=== PATIENT | female | born 1995 | race Caucasian/White ===

== ENCOUNTER 2018-06-15 18:11 | Inpatient (IN) | payer OTHER ==
[2018-06-15] MEDS: ACETAMINOPHEN 325 MG TAB PO (18:45)
[2018-06-15 18:47] LABS: ADD MAN DIFF? NO
[2018-06-15 18:48] LABS: BASOPHILS % 0.2 % (0.0-2.0); EOSINOPHILS # 0.1 10^3/ul (0.0-0.5); EOSINOPHILS % 0.7 % (0.0-7.0); HEMATOCRIT 35.3 % (37.0-47.0); HEMOGLOBIN 11.9 g/dl (12.0-16.0); MEAN CORPUSCULAR HEMOGLOBIN 30.7 pg (29.0-33.0); MEAN CORPUSCULAR HGB CONC 33.7 g/dl (32.0-37.0); MEAN PLATELET VOLUME 10.9 fl (7.4-10.4); MONOCYTE # 0.5 10^3/ul (0.3-0.9); MONOCYTES % 4.4 % (0.0-11.0); NEUTROPHIL # 7.5 10^3/ul (1.6-7.5); NEUTROPHILS % 67.3 % (39.0-77.0); PLATELET COUNT 234 10^3/UL (140-415); RED BLOOD COUNT 3.88 10^6/ul (4.20-5.40); RED CELL DISTRIBUTION WIDTH 12.5 % (11.5-14.5)
[2018-06-15 18:48] LABS: WHITE BLOOD COUNT 11.1 10^3/ul (4.8-10.8)
[2018-06-15 18:54] LABS: ADD UMIC YES; UR ASCORBIC ACID NEGATIVE (NEGATIVE); UR BACTERIA FEW /HPF (NONE SEEN); UR BILIRUBIN (Dip) NEGATIVE (NEGATIVE); UR BLOOD (Dip) NEGATIVE (NEGATIVE); UR CLARITY SLIGHTLY CLOUDY (CLEAR); UR COLOR YELLOW (YELLOW); UR GLUCOSE (Dip) NEGATIVE (NEGATIVE); UR KETONES (Dip) NEGATIVE (NEGATIVE); UR LEUKOCYTE ESTERASE (Dip) 1+ Leu/ul (NEGATIVE); UR MUCUS FEW /HPF (NONE SEEN); UR NITRITE (Dip) NEGATIVE (NEGATIVE); UR RBC 2 /HPF (0-5); UR SPECIFIC GRAVITY (Dip) 1.018 (1.003-1.030); UR SQUAMOUS EPITHELIAL CELL FEW /HPF (FEW); UR TOTAL PROTEIN (Dip) 2+ mg/dl (NEGATIVE); UR UROBILINOGEN (Dip) NEGATIVE (NEGATIVE); UR WBC 4 /HPF (0-5)
[2018-06-15 19:06] LABS: ALANINE AMINOTRANSFERASE 21 IU/L (13-69); ALBUMIN 3.3 g/dl (3.3-4.9); ALBUMIN/GLOBULIN RATIO 1.06; ALKALINE PHOSPHATASE 118 IU/L (42-121); ANION GAP 7 (5-13); ASPARTATE AMINO TRANSFERASE 19 IU/L (15-46); BILIRUBIN,INDIRECT 0.3 mg/dl (0-1.1); BILIRUBIN,TOTAL 0.3 mg/dl (0.2-1.3); BLOOD UREA NITROGEN 8 mg/dl (7-20); CALCIUM 9.1 mg/dl (8.4-10.2); CARBON DIOXIDE 20 mmol/L (21-31); CHLORIDE 107 mmol/L (97-110); CREATININE 0.44 mg/dl (0.44-1.00); Estimated GFR > 60 mL/min (>60); GLUCOSE 111 mg/dl (70-220); POTASSIUM 3.4 mmol/L (3.5-5.1); SODIUM 134 mmol/L (135-144); TOTAL PROTEIN 6.4 g/dl (6.1-8.1); URIC ACID 6.1 mg/dl (3.1-7.9)
[2018-06-15 19:08] LABS: INR 0.84; PROTIME 11.6 Sec (11.9-14.9); PT RATIO 0.9
[2018-06-15] MEDS ORDERED: AL HYDROX/MG HYDROX/SIMETH 30 ML CUP PO (20:30)
[2018-06-15] MEDS: LABETALOL 200 MG TAB PO (21:42)
[2018-06-16] MEDS: BETAMET NA PHOS/AC(6 MG/ML) 2 ML INJ SYG IM (00:32)
[2018-06-16] MEDS: FERROUS SULFATE (EC) 325 MG TAB PO (09:01)
[2018-06-16] MEDS: ASPIRIN 81 MG TAB PO (09:01)
[2018-06-16] MEDS: PRENATAL VITAMIN PO (09:01)
[2018-06-16] MEDS: LABETALOL 200 MG TAB PO ×2 (09:02→20:53)
[2018-06-16] MEDS: ACETAMINOPHEN 325 MG TAB PO ×2 (15:29→23:44)
[2018-06-16 18:39] LABS: COLLECTION PERIOD 24 hrs
[2018-06-16 19:05] LABS: CREATININE 0.44 mg/dl (0.44-1.00)
[2018-06-16 19:13] LABS: CREATININE,URINE RANDOM 143.36 mg/dl (20-320)
[2018-06-16 19:15] LABS: COLLECTION PERIOD 24 hrs; CREATININE CLEARANCE 203.6 mls/min (84.0-162.0); SCRET 0.44 mg/dl (0.44-1.00); VOLUME 900 ml/24hrs; VOLUME 900 mls
[2018-06-16 22:52] LABS: HEPATITIS B SURFACE ANTIGEN NEGATIVE (NEGATIVE)
[2018-06-17] MEDS: BETAMET NA PHOS/AC(6 MG/ML) 2 ML INJ SYG IM (00:45)
[2018-06-17] MEDS: FERROUS SULFATE (EC) 325 MG TAB PO (08:39)
[2018-06-17] MEDS: ASPIRIN 81 MG TAB PO (08:39)
[2018-06-17] MEDS: PRENATAL VITAMIN PO (08:39)
[2018-06-17] MEDS: LABETALOL 200 MG TAB PO (08:39)
[2018-06-17 15:32] LABS: RAPID PLASMA REAGIN NONREACTIVE (NR)
[2018-06-18 14:41] LABS: ANA SCREEN NEGATIVE (NEGATIVE)
[2018-06-19 13:07] LABS: SMOOTH MUSCLE AB SCREEN NEGATIVE (NEGATIVE)
[2018-06-20 01:52] LABS: B2 GLYCOPROTEIN I AB (IGA) <9 SAU (< OR = 20); B2 GLYCOPROTEIN I AB (IGG) <9 SGU (< OR = 20); B2 GLYCOPROTEIN I AB (IGM) <9 SMU (< OR = 20)
[2018-06-20 11:02] LABS: CARDIOLIPIN AB - IGA <11 APL; CARDIOLIPIN AB - IGG <14 GPL; CARDIOLIPIN AB - IGM <12 MPL
== END 2018-06-17 13:05 | disposition home or self-care (01) | DRG 833 ==
LOC: OBT 18:11 → L-D 06-16 04:32 → OBT 20:09 → L-D 20:09
DX: O13.3 Gestational [pregnancy-induced] hypertension without significant proteinuria, third trimester (principal); Z3A.30 30 weeks gestation of pregnancy
CPT/HCPCS: 36415; 80053; 81001; 82565; 82575; 84156; 84560; 85025; 85610; 85613; 85730; 86038; 86146; 86147; 86255; 86592; 87340

== ENCOUNTER 2018-06-25 11:48 | Inpatient (IN) | payer OTHER ==
[2018-06-25 12:40] LABS: ADD MAN DIFF? NO
[2018-06-25 12:45] LABS: BASOPHILS % 0.2 % (0.0-2.0); EOSINOPHILS # 0.1 10^3/ul (0.0-0.5); EOSINOPHILS % 0.7 % (0.0-7.0); HEMATOCRIT 39.1 % (37.0-47.0); HEMOGLOBIN 13.2 g/dl (12.0-16.0); LYMPHOCYTES # 2.7 10^3/ul (0.8-2.9); LYMPHOCYTES % 20.2 % (15.0-51.0); MEAN CORPUSCULAR HEMOGLOBIN 30.8 pg (29.0-33.0); MEAN CORPUSCULAR HGB CONC 33.8 g/dl (32.0-37.0); MEAN CORPUSCULAR VOLUME 91.4 fl (82.0-101.0); MEAN PLATELET VOLUME 10.9 fl (7.4-10.4); MONOCYTE # 0.7 10^3/ul (0.3-0.9); MONOCYTES % 5.3 % (0.0-11.0); NEUTROPHIL # 9.5 10^3/ul (1.6-7.5); NEUTROPHILS % 72.8 % (39.0-77.0); PLATELET COUNT 218 10^3/UL (140-415); RED BLOOD COUNT 4.28 10^6/ul (4.20-5.40); RED CELL DISTRIBUTION WIDTH 13.1 % (11.5-14.5)
[2018-06-25 12:45] LABS: WHITE BLOOD COUNT 13.1 10^3/ul (4.8-10.8)
[2018-06-25 12:54] LABS: ADD UMIC YES; UR ASCORBIC ACID NEGATIVE (NEGATIVE); UR BACTERIA FEW /HPF (NONE SEEN); UR BILIRUBIN (Dip) NEGATIVE (NEGATIVE); UR BLOOD (Dip) NEGATIVE (NEGATIVE); UR CLARITY SLIGHTLY CLOUDY (CLEAR); UR COLOR YELLOW (YELLOW); UR GLUCOSE (Dip) NEGATIVE (NEGATIVE); UR KETONES (Dip) NEGATIVE (NEGATIVE); UR LEUKOCYTE ESTERASE (Dip) 1+ Leu/ul (NEGATIVE); UR MUCUS FEW /HPF (NONE SEEN); UR NITRITE (Dip) NEGATIVE (NEGATIVE); UR RBC 1 /HPF (0-5); UR SPECIFIC GRAVITY (Dip) 1.018 (1.003-1.030); UR SQUAMOUS EPITHELIAL CELL FEW /HPF (FEW); UR TOTAL PROTEIN (Dip) 1+ mg/dl (NEGATIVE); UR UROBILINOGEN (Dip) NEGATIVE (NEGATIVE); UR WBC 2 /HPF (0-5)
[2018-06-25 13:25] LABS: URIC ACID 6.9 mg/dl (3.1-7.9)
[2018-06-25 13:26] LABS: ALANINE AMINOTRANSFERASE 51 IU/L (13-69); ALBUMIN 3.5 g/dl (3.3-4.9); ALBUMIN/GLOBULIN RATIO 1.06; ALKALINE PHOSPHATASE 126 IU/L (42-121); ANION GAP 7 (5-13); ASPARTATE AMINO TRANSFERASE 73 IU/L (15-46); BILIRUBIN,INDIRECT 0.4 mg/dl (0-1.1); BILIRUBIN,TOTAL 0.4 mg/dl (0.2-1.3); BLOOD UREA NITROGEN 10 mg/dl (7-20); CALCIUM 9.7 mg/dl (8.4-10.2); CARBON DIOXIDE 22 mmol/L (21-31); CHLORIDE 107 mmol/L (97-110); CREATININE 0.41 mg/dl (0.44-1.00); Estimated GFR > 60 mL/min (>60); GLUCOSE 104 mg/dl (70-220); POTASSIUM 3.8 mmol/L (3.5-5.1); SODIUM 136 mmol/L (135-144); TOTAL PROTEIN 6.8 g/dl (6.1-8.1)
[2018-06-25 13:41] LABS: INR 0.81; PROTIME 11.2 Sec (11.9-14.9); PT RATIO 0.9
[2018-06-25 13:42] LABS: PARTIAL THROMBOPLASTIN TIME 27.3 Sec (23.0-35.0)
[2018-06-25] MEDS: ACETAMINOPHEN 325 MG TAB PO (16:13)
[2018-06-25] MEDS: LABETALOL 200 MG TAB PO (20:49)
[2018-06-26 06:05] LABS: ADD MAN DIFF? NO
[2018-06-26 06:12] LABS: BASOPHILS % 0.2 % (0.0-2.0); EOSINOPHILS # 0.1 10^3/ul (0.0-0.5); EOSINOPHILS % 0.9 % (0.0-7.0); HEMATOCRIT 36.5 % (37.0-47.0); HEMOGLOBIN 12.2 g/dl (12.0-16.0); LYMPHOCYTES # 2.7 10^3/ul (0.8-2.9); LYMPHOCYTES % 24.4 % (15.0-51.0); MEAN CORPUSCULAR HGB CONC 33.4 g/dl (32.0-37.0); MEAN CORPUSCULAR VOLUME 92.9 fl (82.0-101.0); MEAN PLATELET VOLUME 11.4 fl (7.4-10.4); MONOCYTE # 0.8 10^3/ul (0.3-0.9); MONOCYTES % 6.8 % (0.0-11.0); NEUTROPHIL # 7.4 10^3/ul (1.6-7.5); NEUTROPHILS % 67.2 % (39.0-77.0); PLATELET COUNT 189 10^3/UL (140-415); RED BLOOD COUNT 3.93 10^6/ul (4.20-5.40); RED CELL DISTRIBUTION WIDTH 13.2 % (11.5-14.5)
[2018-06-26 06:49] LABS: ALBUMIN/GLOBULIN RATIO 1.03; ANION GAP 5 (5-13); BILIRUBIN,TOTAL 0.3 mg/dl (0.2-1.3); Estimated GFR > 60 mL/min (>60)
[2018-06-26 06:52] LABS: ALANINE AMINOTRANSFERASE 39 IU/L (13-69); ALBUMIN 3.1 g/dl (3.3-4.9); ALKALINE PHOSPHATASE 117 IU/L (42-121); ASPARTATE AMINO TRANSFERASE 40 IU/L (15-46); BILIRUBIN,INDIRECT 0.3 mg/dl (0-1.1); BLOOD UREA NITROGEN 15 mg/dl (7-20); CALCIUM 9.1 mg/dl (8.4-10.2); CARBON DIOXIDE 23 mmol/L (21-31); CHLORIDE 107 mmol/L (97-110); CREATININE 0.43 mg/dl (0.44-1.00); GLUCOSE 88 mg/dl (70-220); POTASSIUM 4.4 mmol/L (3.5-5.1); SODIUM 135 mmol/L (135-144); TOTAL PROTEIN 6.1 g/dl (6.1-8.1)
[2018-06-26] MEDS: LABETALOL 200 MG TAB PO (10:15)
== END 2018-06-26 16:54 | disposition home or self-care (01) | DRG 833 ==
LOC: OBT 11:48 → L-D 11:48 → OBT 16:30 → L-D 16:30
DX: O13.3 Gestational [pregnancy-induced] hypertension without significant proteinuria, third trimester (principal); Z3A.31 31 weeks gestation of pregnancy
CPT/HCPCS: 76705; 76818; 80053; 81001; 84560; 85025; 85384; 85610; 85730

== ENCOUNTER 2018-06-30 11:04 | Inpatient (IN) | payer OTHER ==
[2018-06-30 12:54] LABS: ADD UMIC YES; UR ASCORBIC ACID NEGATIVE (NEGATIVE); UR BACTERIA FEW /HPF (NONE SEEN); UR BILIRUBIN (Dip) NEGATIVE (NEGATIVE); UR BLOOD (Dip) NEGATIVE (NEGATIVE); UR CLARITY CLOUDY (CLEAR); UR COLOR AMBER (YELLOW); UR GLUCOSE (Dip) NEGATIVE (NEGATIVE); UR KETONES (Dip) NEGATIVE (NEGATIVE); UR LEUKOCYTE ESTERASE (Dip) 2+ Leu/ul (NEGATIVE); UR MUCUS MODERATE /HPF (NONE SEEN); UR NITRITE (Dip) NEGATIVE (NEGATIVE); UR RBC 3 /HPF (0-5); UR SPECIFIC GRAVITY (Dip) 1.028 (1.003-1.030); UR SQUAMOUS EPITHELIAL CELL MODERATE /HPF (FEW); UR TOTAL PROTEIN (Dip) 2+ mg/dl (NEGATIVE); UR UROBILINOGEN (Dip) NEGATIVE (NEGATIVE); UR WBC 11 /HPF (0-5)
[2018-06-30] MEDS: ACETAMINOPHEN 325 MG TAB PO (13:37)
[2018-06-30] MEDS: ONDANSETRON 4 MG TAB PO ×2 (13:37→21:00)
[2018-06-30 14:11] LABS: ADD MAN DIFF? NO
[2018-06-30 14:13] LABS: BASOPHILS % 0.2 % (0.0-2.0); EOSINOPHILS % 0.1 % (0.0-7.0); HEMATOCRIT 39.9 % (37.0-47.0); HEMOGLOBIN 13.4 g/dl (12.0-16.0); LYMPHOCYTES # 0.8 10^3/ul (0.8-2.9); LYMPHOCYTES % 6.5 % (15.0-51.0); MEAN CORPUSCULAR HEMOGLOBIN 30.9 pg (29.0-33.0); MEAN CORPUSCULAR HGB CONC 33.6 g/dl (32.0-37.0); MEAN CORPUSCULAR VOLUME 92.1 fl (82.0-101.0); MEAN PLATELET VOLUME 11.4 fl (7.4-10.4); MONOCYTE # 0.6 10^3/ul (0.3-0.9); MONOCYTES % 4.8 % (0.0-11.0); NEUTROPHIL # 10.8 10^3/ul (1.6-7.5); NEUTROPHILS % 87.9 % (39.0-77.0); PLATELET COUNT 225 10^3/UL (140-415); RED BLOOD COUNT 4.33 10^6/ul (4.20-5.40)
[2018-06-30 14:13] LABS: WHITE BLOOD COUNT 12.3 10^3/ul (4.8-10.8)
[2018-06-30 14:33] LABS: INR 0.81; PARTIAL THROMBOPLASTIN TIME 27.5 Sec (23.0-35.0); PROTIME 11.2 Sec (11.9-14.9); PT RATIO 0.9
[2018-06-30 14:34] LABS: ALANINE AMINOTRANSFERASE 17 IU/L (13-69); ALBUMIN 3.3 g/dl (3.3-4.9); ALKALINE PHOSPHATASE 137 IU/L (42-121); ANION GAP 12 (5-13); ASPARTATE AMINO TRANSFERASE 26 IU/L (15-46); BILIRUBIN,INDIRECT 0.6 mg/dl (0-1.1); BILIRUBIN,TOTAL 0.6 mg/dl (0.2-1.3); BLOOD UREA NITROGEN 13 mg/dl (7-20); CALCIUM 8.6 mg/dl (8.4-10.2); CARBON DIOXIDE 20 mmol/L (21-31); CHLORIDE 104 mmol/L (97-110); CREATININE 0.47 mg/dl (0.44-1.00); Estimated GFR > 60 mL/min (>60); GLUCOSE 107 mg/dl (70-220); SODIUM 136 mmol/L (135-144); TOTAL PROTEIN 6.3 g/dl (6.1-8.1); URIC ACID 7.6 mg/dl (3.1-7.9)
[2018-06-30] MEDS: LACTATED RINGER'S 1,000 ML IV (18:04)
[2018-06-30] MEDS: LABETALOL 200 MG TAB PO (21:00)
[2018-07-01] MEDS: LACTATED RINGER'S 1,000 ML IV ×2 (00:07→06:46)
[2018-07-01] MEDS: ACETAMINOPHEN 325 MG TAB PO (07:32)
[2018-07-01] MEDS: LABETALOL 200 MG TAB PO (09:12)
[2018-07-01] MEDS: FERROUS SULFATE (EC) 325 MG TAB PO (09:13)
[2018-07-01] MEDS: PRENATAL VITAMIN PO (09:13)
[2018-07-01] MEDS: ASPIRIN 81 MG TAB PO (10:09)
[2018-07-01] MEDS: CALCIUM/VITAMIN D (250/125) TAB PO (10:09)
== END 2018-07-01 12:10 | disposition home or self-care (01) | DRG 833 ==
LOC: OBT 11:04 → L-D 11:08 → OBT 16:30 → L-D 16:30
DX: O13.3 Gestational [pregnancy-induced] hypertension without significant proteinuria, third trimester (principal); Z3A.32 32 weeks gestation of pregnancy; O41.8X30 Other specified disorders of amniotic fluid and membranes, third trimester, not applicable or unspecified
CPT/HCPCS: 76815; 76818; 80053; 81001; 84560; 85025; 85384; 85610; 85730; 87086

== ENCOUNTER 2018-07-12 14:19 | Inpatient (IN) | payer OTHER ==
[2018-07-12 15:08] LABS: ADD MAN DIFF? NO
[2018-07-12 15:17] LABS: WHITE BLOOD COUNT 11.6 10^3/ul (4.8-10.8)
[2018-07-12 15:17] LABS: BASOPHILS % 0.3 % (0.0-2.0); EOSINOPHILS # 0.1 10^3/ul (0.0-0.5); EOSINOPHILS % 0.9 % (0.0-7.0); HEMATOCRIT 37.1 % (37.0-47.0); LYMPHOCYTES # 2.8 10^3/ul (0.8-2.9); LYMPHOCYTES % 24.2 % (15.0-51.0); MEAN CORPUSCULAR HEMOGLOBIN 31.3 pg (29.0-33.0); MEAN CORPUSCULAR VOLUME 89.2 fl (82.0-101.0); MEAN PLATELET VOLUME 11.2 fl (7.4-10.4); MONOCYTE # 0.5 10^3/ul (0.3-0.9); MONOCYTES % 4.2 % (0.0-11.0); NEUTROPHIL # 8.1 10^3/ul (1.6-7.5); PLATELET COUNT 192 10^3/UL (140-415); RED BLOOD COUNT 4.16 10^6/ul (4.20-5.40); RED CELL DISTRIBUTION WIDTH 12.4 % (11.5-14.5)
[2018-07-12 15:30] LABS: ALANINE AMINOTRANSFERASE 39 IU/L (13-69); ALBUMIN 3.2 g/dl (3.3-4.9); ALBUMIN/GLOBULIN RATIO 1.06; ALKALINE PHOSPHATASE 159 IU/L (42-121); ANION GAP 7 (5-13); ASPARTATE AMINO TRANSFERASE 42 IU/L (15-46); BILIRUBIN,INDIRECT 0.3 mg/dl (0-1.1); BILIRUBIN,TOTAL 0.3 mg/dl (0.2-1.3); BLOOD UREA NITROGEN 9 mg/dl (7-20); CALCIUM 9.3 mg/dl (8.4-10.2); CARBON DIOXIDE 23 mmol/L (21-31); CHLORIDE 106 mmol/L (97-110); CREATININE 0.43 mg/dl (0.44-1.00); Estimated GFR > 60 mL/min (>60); GLUCOSE 100 mg/dl (70-220); POTASSIUM 3.7 mmol/L (3.5-5.1); SODIUM 136 mmol/L (135-144); TOTAL PROTEIN 6.2 g/dl (6.1-8.1); URIC ACID 6.1 mg/dl (3.1-7.9)
[2018-07-12 16:33] LABS: ADD UMIC YES; UR ASCORBIC ACID NEGATIVE (NEGATIVE); UR BACTERIA FEW /HPF (NONE SEEN); UR BILIRUBIN (Dip) NEGATIVE (NEGATIVE); UR BLOOD (Dip) NEGATIVE (NEGATIVE); UR CLARITY SLIGHTLY CLOUDY (CLEAR); UR COLOR YELLOW (YELLOW); UR GLUCOSE (Dip) NEGATIVE (NEGATIVE); UR KETONES (Dip) NEGATIVE (NEGATIVE); UR LEUKOCYTE ESTERASE (Dip) 1+ Leu/ul (NEGATIVE); UR NITRITE (Dip) NEGATIVE (NEGATIVE); UR RBC 2 /HPF (0-5); UR SPECIFIC GRAVITY (Dip) 1.012 (1.003-1.030); UR SQUAMOUS EPITHELIAL CELL FEW /HPF (FEW); UR TOTAL PROTEIN (Dip) 3+ mg/dl (NEGATIVE); UR UROBILINOGEN (Dip) NEGATIVE (NEGATIVE); UR WBC 7 /HPF (0-5)
[2018-07-12] MEDS ORDERED: ACETAMINOPHEN 650 MG SUPP PR (18:00)
[2018-07-12] MEDS ORDERED: ACETAMINOPHEN 325 MG TAB (18:30)
[2018-07-12] MEDS: BETAMET NA PHOS/AC(6 MG/ML) 2 ML INJ SYG IM (18:35)
[2018-07-12] MEDS: ACETAMINOPHEN 325 MG TAB PO (18:39)
[2018-07-12] MEDS: LABETALOL 100 MG TAB PO (20:50)
[2018-07-13] MEDS: LACTATED RINGER'S 1,000 ML IV ×4 (01:12→18:01)
[2018-07-13] MEDS: PRENATAL VITAMIN PO (08:49)
[2018-07-13] MEDS: FERROUS SULFATE (EC) 325 MG TAB PO (08:49)
[2018-07-13] MEDS: LABETALOL 100 MG TAB PO ×2 (09:21→09:44)
[2018-07-13] MEDS: ACETAMINOPHEN 325 MG TAB PO ×2 (09:27→13:23)
[2018-07-13] MEDS ORDERED: LABETALOL 100 MG TAB (09:42)
[2018-07-13] MEDS: MAGNESIUM SULFATE 4 GM/100 ML IVPB (16:09)
[2018-07-13] MEDS: MAGNESIUM SULFATE 20 GM/500 ML 500 ML IV (16:34)
[2018-07-13] MEDS: MISOPROSTOL 50 MCG CAPSULE PO ×2 (17:35→22:04)
[2018-07-13] MEDS: AMPICILLIN 2 GM/NS (PMX) 100 ML IVPB (18:01)
[2018-07-13] MEDS: BETAMET NA PHOS/AC(6 MG/ML) 2 ML INJ SYG IM (18:31)
[2018-07-13] MEDS: LABETALOL 200 MG TAB PO (21:03)
[2018-07-13] MEDS: AMPICILLIN 1 GM/NS (PMX) 50 ML IVPB (22:05)
[2018-07-13] MEDS: BUTORPHANOL 2 MG INJ IV (22:58)
[2018-07-14 00:49] LABS: MAGNESIUM 4.1 mg/dl (1.7-2.5)
[2018-07-14] MEDS: AMPICILLIN 1 GM/NS (PMX) 50 ML IVPB ×2 (02:16→06:00)
[2018-07-14] MEDS: LACTATED RINGER'S 1,000 ML IV (02:16)
[2018-07-14] MEDS: MISOPROSTOL 50 MCG CAPSULE PO ×2 (02:16→06:00)
[2018-07-14] MEDS: BUTORPHANOL 2 MG INJ IV (05:55)
[2018-07-14 07:24] LABS: MAGNESIUM 4.3 mg/dl (1.7-2.5)
[2018-07-14] MEDS ORDERED: LIDOCAINE 1% (MPF) 30 ML INJ (07:51)
[2018-07-14] MEDS ORDERED: CARBOPROST 250 MCG INJ IM ×2 (08:00→11:00)
[2018-07-14] MEDS ORDERED: IBUPROFEN 600 MG TAB PO (08:00)
[2018-07-14] MEDS ORDERED: OXYTOCIN 30 UNITS/LR 500 ML IV ×2 (08:00→11:00)
[2018-07-14] MEDS ORDERED: MISOPROSTOL 200 MCG TAB PR ×2 (08:00→11:00)
[2018-07-14] MEDS ORDERED: METHYLERGONOVINE 0.2 MG INJ IM ×2 (08:00→11:00)
[2018-07-14] MEDS ORDERED: LIDOCAINE 1% (MPF) 30 ML INJ INJ (08:00)
[2018-07-14 08:15] LABS: INR 0.83; PROTIME 11.5 Sec (11.9-14.9); PT RATIO 0.9
[2018-07-14 08:16] LABS: PARTIAL THROMBOPLASTIN TIME 25.3 Sec (23.0-35.0)
[2018-07-14] MEDS: OXYTOCIN 30 UNITS/LR 500 ML IV ×2 (08:23→08:30)
[2018-07-14] MEDS: LABETALOL 200 MG TAB PO ×2 (08:51→21:11)
[2018-07-14] MEDS: MINERAL OIL LIGHT 10 ML VIAL TOP (10:15)
[2018-07-14 10:25] LABS: HEPATITIS B SURFACE ANTIGEN NEGATIVE (NEGATIVE)
[2018-07-14] MEDS ORDERED: DIBUCAINE 1% 30 GM OINT TOP (11:00)
[2018-07-14] MEDS ORDERED: HYDROCODONE/APAP (5/325) TAB PO ×2 (11:00)
[2018-07-14] MEDS ORDERED: ZOLPIDEM 5 MG TAB PO (11:00)
[2018-07-14] MEDS: LACTATED RINGER'S 1,000 ML IV* ×2 (11:00→12:30)
[2018-07-14] MEDS: MAGNESIUM SULFATE 20 GM/500 ML 500 ML IV ×2 (11:16→21:15)
[2018-07-14] MEDS: IBUPROFEN 600 MG TAB PO ×2 (12:28→18:00)
[2018-07-14] MEDS: LANOLIN HPA 1 PKT TOP (12:29)
[2018-07-14] MEDS: WITCH HAZEL/GLYCERIN PAD PR (12:29)
[2018-07-14] MEDS: BENZOCAINE 20% 56 ML SPRAY TOP (12:29)
[2018-07-14 12:52] LABS: MAGNESIUM 4.8 mg/dl (1.7-2.5)
[2018-07-14 15:45] LABS: RAPID PLASMA REAGIN NONREACTIVE (NR)
[2018-07-14 19:25] LABS: MAGNESIUM 5.7 mg/dl (1.7-2.5)
[2018-07-14] MEDS: SENNA/DOCUSATE NA (8.6MG/50MG) TAB PO (21:10)
[2018-07-14] MEDS: MAGNESIUM HYDROXIDE 30ML CUP PO (21:10)
[2018-07-15] MEDS: IBUPROFEN 600 MG TAB PO ×4 (00:13→17:15)
[2018-07-15 01:43] LABS: MAGNESIUM 5.1 mg/dl (1.7-2.5)
[2018-07-15] MEDS: LACTATED RINGER'S 1,000 ML IV* ×2 (01:58→11:00)
[2018-07-15 07:10] LABS: WHITE BLOOD COUNT 12.5 10^3/ul (4.8-10.8)
[2018-07-15 07:10] LABS: ADD MAN DIFF? NO; BASOPHILS % 0.2 % (0.0-2.0); EOSINOPHILS % 0.2 % (0.0-7.0); HEMATOCRIT 32.5 % (37.0-47.0); HEMOGLOBIN 10.8 g/dl (12.0-16.0); LYMPHOCYTES # 3.1 10^3/ul (0.8-2.9); LYMPHOCYTES % 25.2 % (15.0-51.0); MEAN CORPUSCULAR HEMOGLOBIN 30.9 pg (29.0-33.0); MEAN CORPUSCULAR HGB CONC 33.2 g/dl (32.0-37.0); MEAN CORPUSCULAR VOLUME 93.1 fl (82.0-101.0); MEAN PLATELET VOLUME 10.8 fl (7.4-10.4); MONOCYTE # 0.7 10^3/ul (0.3-0.9); MONOCYTES % 5.2 % (0.0-11.0); NEUTROPHIL # 8.6 10^3/ul (1.6-7.5); NEUTROPHILS % 68.6 % (39.0-77.0); PLATELET COUNT 217 10^3/UL (140-415); RED BLOOD COUNT 3.49 10^6/ul (4.20-5.40); RED CELL DISTRIBUTION WIDTH 12.9 % (11.5-14.5)
[2018-07-15] MEDS: MAGNESIUM SULFATE 20 GM/500 ML 500 ML IV (07:27)
[2018-07-15 07:59] LABS: MAGNESIUM 5.7 mg/dl (1.7-2.5)
[2018-07-15] MEDS: MAGNESIUM HYDROXIDE 30ML CUP PO ×2 (09:21→20:56)
[2018-07-15] MEDS: SENNA/DOCUSATE NA (8.6MG/50MG) TAB PO ×2 (09:21→20:57)
[2018-07-15] MEDS: LABETALOL 200 MG TAB PO ×2 (09:21→20:57)
[2018-07-16] MEDS: IBUPROFEN 600 MG TAB PO ×3 (00:41→12:00)
[2018-07-16] MEDS: SENNA/DOCUSATE NA (8.6MG/50MG) TAB PO (09:00)
[2018-07-16] MEDS: MAGNESIUM HYDROXIDE 30ML CUP PO (09:00)
[2018-07-16] MEDS: LABETALOL 200 MG TAB PO (09:12)
[2018-07-16] MEDS: MEASLES,MUMPS,RUBELLA VACCINE INJ SC* (09:13)
[2018-07-16] MEDS: DIPHTH/TET/ACEL PERTUSS (ADULT) 0.5 ML VIAL IM* (09:29)
[2018-07-16] MEDS: VARICELLA VACCINE LIVE/PF 1,350 UNIT/0.5 ML ML SC* (09:38)
== END 2018-07-16 12:54 | disposition home or self-care (01) | DRG 806 ==
LOC: OBT 14:19 → L-D 07-13 14:40 → PP1 07-14 10:19 → L-D 14:19 → OBT 17:40 → L-D 07-13 15:47 → PP1 21:24
PROC: 4A1HXCZ Monitoring of Products of Conception, Cardiac Rate, External Approach (ICD-10-PCS; 2018-07-12)
PROC: 10E0XZZ Delivery of Products of Conception, External Approach (ICD-10-PCS; principal; 2018-07-14)
DX: O14.14 Severe pre-eclampsia complicating childbirth (principal); O41.03X0 Oligohydramnios, third trimester, not applicable or unspecified; Z37.0 Single live birth; O60.14X0 Preterm labor third trimester with preterm delivery third trimester, not applicable or unspecified; Z3A.36 36 weeks gestation of pregnancy
CPT/HCPCS: 76815; 76818; 80053; 81001; 83735; 84560; 85025; 85610; 85730; 86592; 86850; 86900; 86901; 87340; 90716; 99464